=== PATIENT | female | born 1995 | race Caucasian/White ===

== ENCOUNTER 2020-10-14 23:17 | Emergency (ER) | payer OTHER ==
[~2020-10-14] VITALS: Ht 149.9 cm; Wt 56.7 kg
[2020-10-14] MEDS ORDERED: FLONASE 0.05%50 MCG NASAL (23:29)
[2020-10-14 23:59] LABS: URINE BILIRUBIN NEGATIVE (Negative); URINE BLOOD NEGATIVE (Negative); URINE CLARITY CLEAR; URINE COLOR YELLOW; URINE GLUCOSE-RANDOM NEGATIVE (Negative); URINE KETONES NEGATIVE (Negative); URINE LEUKOCYTES-REFLEX NEGATIVE (Negative); URINE NITRITE-REFLEX NEGATIVE (Negative); URINE PROTEIN NEGATIVE (Negative); URINE UROBILINOGEN 0.2 E.U./dl (0.2-1.0)
[2020-10-15 00:08] LABS: AMP/METHAMP Negative (Negative); BARBITURATES Negative (Negative); BENZODIAZEPINES Negative (Negative); COCAINE Negative (Negative); METHADONE Negative (Negative); OPIATES Negative (Negative); PCP Negative (Negative); THC POSITIVE (Negative)
[2020-10-15 00:24] LABS: ABSOLUTE EOSINOPHILS 0.1 thou/uL (0.0-0.7); ABSOLUTE LYMPHOCYTES 3.1 thou/uL (0.8-5.3); ABSOLUTE MONOCYTES 0.5 thou/uL (0.0-1.2); ABSOLUTE NEUTROPHILS 6.7 thou/uL (1.6-8.1); BASOPHILS 0.3 %; EOSINOPHILS 0.9 %; HEMATOCRIT 35.5 % (37.0-47.0); MCH 30.5 pg (26.0-34.0); MCHC 33.8 g/dL (28.0-37.0); MONOCYTES 4.7 %; MPV 6.4 fl. (7.2-11.1); NUCLEATED RBCS 0 /100WBC; PLATELET COUNT* 247 thou/uL (150-400); POLYS 64.1 %; RBC 3.94 mil/uL (4.20-5.00); RDW-CV 13.4 % (10.5-14.5); WBC 10.4 thou/uL (4.0-11.0)
[2020-10-15 00:33] LABS: CALCIUM 8.4 mg/dL (8.5-10.1); CREATININE 0.7 mg/dL (0.6-1.3); POTASSIUM 3.1 mmol/L (3.5-5.1)
[2020-10-15 00:38] LABS: ALBUMIN 3.7 g/dL (3.4-5.0); TOTAL BILIRUBIN 0.3 mg/dL (<0.1-1.0); TOTAL PROTEIN 7.1 g/dL (6.4-8.2)
[2020-10-15 01:46] LABS: SALICYLATE < 2.8 mg/dL (2.8-20.0)
[2020-10-15 01:49] LABS: ACETAMINOPHEN < 2 ug/mL (10-30)
[2020-10-15 01:50] LABS: ALCOHOL < 10 mg/dL (<10)
[2020-10-15 16:46] VITALS: BP 116/71
--- NOTE | 2020-10-15 17:29 | EKG ---
[place] [address] ELECTROCARDIOGRAM REPORT Name: JENIFER BEATTY V Room: [facility]#: [id number] Admission: 10/14/20 Attend Phys: Discharge: 10/15/20 Date of : [birth year] Date of Service: 10/15/20 0009 Report #: [id number] THIS REPORT FOR: //name// [facility] ED Test Date: 2020-10-15 Test Time: 00:09:52 Pat Name: JENIFER BEATTY Department: Room: Gender: F [employer]: : [id number] Requested By: Renetta Shukla Order Number: [id number] : James Loyola Measurements Intervals [place] Rate: 98 P: 78 FL: 165 QRS: 88 QRSD: 88 T: 13 QT: 366 QTc: 468 Interpretive Statements Sinus rhythm No previous ECG available for comparison Electronically Signed On 10-15-2020 17:28:52 [employer] by James Loyola [email or web address] <ELECTRONICALLY SIGNED> By: James Loyola MD, [facility] 10/15/20 1728 0009 James Loyola MD, FACC /EPI
== END 2020-10-15 16:46 | disposition still patient (30) ==
LOC: M.ERS 23:17
PROVIDERS: Emergency Medicine
DX: T50.992A Poisoning by other drugs, medicaments and biological substances, intentional self-harm, initial encounter (principal); Z20.828 Contact with and (suspected) exposure to other viral communicable diseases; Z88.8 Allergy status to other drugs, medicaments and biological substances; Z79.899 Other long term (current) drug therapy; Y92.89 Other specified places as the place of occurrence of the external cause